=== PATIENT | female | born 1965 | race Caucasian/White ===

== ENCOUNTER 2020-03-29 10:18 | Emergency (ER) | payer MEDICAID ==
[~2020-03-29] VITALS: Ht 165.1 cm; Wt 300.0 kg
[2020-03-29 11:35] VITALS: BP 164/107
[2020-03-29] MEDS ORDERED: ketorolac tromethamine 15mg/ml inj. IM ONE (11:45)
[2020-03-29] MEDS ORDERED: LIDOcaine 5% patch TP ONE (11:45)
[2020-03-29] MEDS ORDERED: LIDO700A32 TOP (12:23)
== END 2020-03-29 12:35 | disposition home or self-care (01) ==
LOC: ER 10:19
DX: S13.4XXA Sprain of ligaments of cervical spine, initial encounter (principal); M54.2 Cervicalgia; R11.0 Nausea; Z88.0 Allergy status to penicillin; Z79.899 Other long term (current) drug therapy; V89.2XXA Person injured in unspecified motor-vehicle accident, traffic, initial encounter; Y93.89 Activity, other specified; Y92.89 Other specified places as the place of occurrence of the external cause; Y99.8 Other external cause status
CPT/HCPCS: 72040; 96372; 99283; J1885